=== PATIENT | female | born 1995 | race Caucasian/White ===

== ENCOUNTER → 2016-10-09 | Outpatient (CLI) | payer OTHER ==
[~2016-10-09] MED LIST: HYDR50CA PO
--- NOTE | 2016-10-09 12:20 | Diagnostic Imaging Report ---
PROCEDURE: MRI left joint lower extremity without contrast. TECHNIQUE: Multiplanar, multisequence non contrast-enhanced MRI of the left lower extremity was accomplished. INDICATION: Left knee injury. FINDINGS: There is a focal marrow contusion seen in the lower mid aspect of the patella. This is associated with a defect in the patellar cartilage along the inferior central aspect of the patella to the lateral aspect of the midline measuring 7x9 cm. There is no associated bone lesion or defect. This could be associated with a loose body which might correspond to hypointense lesion measuring 7 mm anterior to the insertion of the ACL and smaller other body adjacent to it more anteriorly measuring 4 mm. There is some mild thickening in the proximal aspect of the PCL with no interruption of the fibers suggestive of a partial tear. The ACL is intact. The quadriceps tendon and patellar tendons appear intact. The medial and lateral menisci appear intact. MCL and lateral collateral ligament complex are intact. There is a sclerotic focus in the medial tibial condyle measuring 7 mm likely an incidental bony island. No Moore's cyst. The muscles bulk and signal around the knee appear unremarkable. IMPRESSION: 1. There is a full-thickness cartilage injury resulting in a 7 x 9 mm defect in the inferior central aspect of the lateral facet of the patella with suggestion of a resulting loose bodies in the joint anterior to the ACL insertion, probably representing the displaced cartilage piece. 2. Thickening and increased signal in the proximal PCL suggestive of a partial tear. 3. Moderate joint effusion. Report was faxed to office of Sameera Woodson by clint at 12:20 p.m. Dictated by: Dictated on workstation # [id number]
== END ==
LOC: RAD 10:58
PROVIDERS: ATTEND Nurse Practitioner Family
DX: S89.92XA Unspecified injury of left lower leg, initial encounter (principal); X58.XXXA Exposure to other specified factors, initial encounter; Y99.8 Other external cause status; Y93.64 Activity, baseball
CPT/HCPCS: 73721